=== PATIENT | male | born 1990 | race Caucasian/White ===

== ENCOUNTER 2019-06-29 14:31 | Emergency (ER) | payer OTHER ==
[2019-06-29] MEDS ORDERED: DIPHTH,PERTUSS(ACELL),TET 0.5 ML DISP.SYRIN IM ONE ×2 (14:45→15:33)
[2019-06-29 14:46] VITALS: BP 125/58; PULSE 78; TEMP 97.9; BMI 28.7
--- NOTE | 2019-06-29 14:50 | PDOC ---
Rapid Medical Evaluation Chief Complaint: Injury Time Seen by Provider: 06/29/19 14:43 Medical Evaluation: Allergies Allergy/AdvReac Type Severity Reaction Status Date / Time No Known Allergies Allergy Verified 06/29/19 14:35 Vital Signs Temp Pulse Resp BP Pulse Ox 97.9 F 78 18 125/58 L 98 06/29/19 14:35 06/29/19 14:35 06/29/19 14:35 06/29/19 14:35 06/29/19 14:35 06/29/19 14:48 Pt c/o: injury to left leg after being struck by a metal desk while at work [employer] , now with wound, UNKNOWN LAST TDAP Pt on brief exam: noted superficial opened wound to mid shift of fibula, ambulatory Pt ordered for: yib/fib xray and tdap Pt to proceed to the ED Discharge Disposition - Diagnosis Leg injury - Referrals - Patient Instructions - Post Discharge Activity
--- NOTE | 2019-06-29 15:02 | PDOC ---
History of Present Illness - General Chief Complaint: Injury Stated Complaint: INJURY Time Seen by Provider: 06/29/19 14:43 History Source: Patient Exam Limitations: No Limitations Past History - Past Medical History Allergies/Adverse Reactions: Allergies Allergy/AdvReac Type Severity Reaction Status Date / Time No Known Allergies Allergy Verified 06/29/19 14:35 Home Medications: Ambulatory Orders NK [No Known Home Medication] 06/29/19 - Psycho Social/Smoking Cessation Hx Smoking History: Current every day smoker Information on smoking cessation initiated: Yes *Physical Exam - Vital Signs Last Vital Signs Temp Pulse Resp BP Pulse Ox 97.9 F 78 18 125/58 L 98 06/29/19 14:35 06/29/19 14:35 06/29/19 14:35 06/29/19 14:35 06/29/19 14:35 - Physical Exam General Appearance: No: Apparent Distress Extremity: positive: Other (small abrasion to L ribeiro, mild swelling along site, FROM of L knee, no obvious deformity noted, LLE neurovascularly intact) Neurologic: positive: Alert, Normal Mood/Affect Medical Decision Making - Medical Decision Making 29 y/o M with no sig pmh presents as got along L ribeiro at work today. Works at [employer] needs [employer] and states one of the kids hit his leg with the desk. Denies head/neck trauma, other complaints Xray negative for fracture Small abrasion to ribeiro stable for dc 06/29/19 15:27 Discharge - Discharge Information Problems reviewed: Yes Clinical Impression/Diagnosis: Leg injury Qualifiers: Encounter type: initial encounter Laterality: left Qualified Code(s): S89.92XA - Unspecified injury of left lower leg, initial encounter Condition: Stable Disposition: HOME - Admission No - Additional Discharge Information Prescription Drug Monitoring Program (I-STOP) results: I-STOP not reviewed - Follow up/Referral - Patient Discharge Instructions Patient Printed Discharge Instructions: DI for Abrasion Additional Instructions: Thank you for choosing [facility]. It was a pleasure taking care of you. You may apply Bacitracin or Neosporin over site of abrasion Ice the site of swelling You may take Motrin if needed for pain. Take with food Return to the Emergency Department if your symptoms worsen or persist or have other concerning symptoms. - Post Discharge Activity
== END 2019-06-29 15:40 | disposition home or self-care (01) ==
LOC: JERFT 14:31
DX: S89.92XA Unspecified injury of left lower leg, initial encounter (principal); W22.03XA Walked into furniture, initial encounter; Y93.89 Activity, other specified; Y92.89 Other specified places as the place of occurrence of the external cause; Y99.0 Civilian activity done for income or pay
CPT/HCPCS: 73590-TC-LT-FY; 99281-25

== ENCOUNTER 2021-11-20 14:49 | Emergency (ER) | payer OTHER ==
[2021-11-20 15:03] VITALS: BP 131/80; PULSE 87; TEMP 98.2; BMI 27.2
[2021-11-20] MEDS ORDERED: ONDANSETRON *ODT* 4 MG TABLET SL ONE (16:00)
[2021-11-20] MEDS ORDERED: ONDANSETRON *ODT* 4 MG TABLET ONE (16:18)
[2021-11-20] MEDS ORDERED: ACETAMINOPHEN 500 MG TABLET (FP) PO ONE (17:09)
[2021-11-20] MEDS ORDERED: ACETAMINOPHEN 325 MG TABLET (FP) ONE (17:13)
== END 2021-11-20 17:45 | disposition home or self-care (01) ==
LOC: JER 14:49
DX: S06.0X9A Concussion with loss of consciousness of unspecified duration, initial encounter (principal); W22.8XXA Striking against or struck by other objects, initial encounter
CPT/HCPCS: 70450-TC; 70486-TC; 72125-TC; 99284-25; Q0162